=== PATIENT | male | born 1960 | race Caucasian/White ===

== ENCOUNTER 2023-01-24 09:29 | Outpatient (OUT) | payer OTHER, SELFPAY ==
--- NOTE | 2023-01-24 10:00 | XR_ITS ---
The [place] [id number] Patient Name: ISAIAS GONSALEZ MRN: [id number] date: 1960 Sex: M Assigned Patient Location: [facility] Current Patient Location: [facility] Accession/Order Number: [id number] Exam Date: 01/24/2023 10:00 Report Date: 01/24/2023 17:24 At the request of: FARIDEH VASQUEZ Procedure: XR foot RT min 3V PROCEDURE: XR ankle RT min 3V, XR foot RT min 3V HISTORY: RIGHT ANKLE PAIN COMPARISON: None. FINDINGS: BONES:Bone hypertrophy the head of the first metatarsal and mild lateral deviation of the first toe. No fracture, dislocation, or bone lesion. Symmetric appearance of the ankle joint. SOFT TISSUES:No visible soft tissue swelling. EFFUSION:None visible. OTHER: Negative. XR/XR foot RT min 3V IMPRESSION: 1. Mild bunion formation. 2. Unremarkable ankle joint. Electronically authenticated by: YONI CARMICHAEL Date: 01/24/2023 17:24
--- NOTE | 2023-01-24 10:01 | XR_ITS ---
The [place] [id number] Patient Name: ISAIAS GONSALEZ MRN: [id number] date: 1960 Sex: M Assigned Patient Location: [facility] Current Patient Location: [facility] Accession/Order Number: [id number] Exam Date: 01/24/2023 10:00 Report Date: 01/24/2023 17:24 At the request of: FARIDEH VASQUEZ Procedure: XR ankle RT min 3V PROCEDURE: XR ankle RT min 3V, XR foot RT min 3V HISTORY: RIGHT ANKLE PAIN COMPARISON: None. FINDINGS: BONES:Bone hypertrophy the head of the first metatarsal and mild lateral deviation of the first toe. No fracture, dislocation, or bone lesion. Symmetric appearance of the ankle joint. SOFT TISSUES:No visible soft tissue swelling. EFFUSION:None visible. OTHER: Negative. XR/XR ankle RT min 3V IMPRESSION: 1. Mild bunion formation. 2. Unremarkable ankle joint. Electronically authenticated by: YONI CARMICHAEL Date: 01/24/2023 17:24
== END 2023-01-24 09:30 | disposition home or self-care (01) ==
LOC: RAD 09:29
PROVIDERS: Visit Provider Podiatrist Foot & Ankle Surgery
DX: M19.071 Primary osteoarthritis, right ankle and foot (principal)
CPT/HCPCS: 73610; 73630

== ENCOUNTER 2023-04-30 06:58 | Outpatient (OUT) | payer OTHER, SELFPAY ==
--- NOTE | 2023-04-30 07:03 | MR_ITS ---
The [address] [address] Patient Name: ISAIAS GONSALEZ MRN: [id number] date: 1960 Sex: M Assigned Patient Location: MRI Current Patient Location: MRI Accession/Order Number: [id number] Exam Date: 04/30/2023 07:04 Report Date: 04/30/2023 08:16 At the request of: JOLIE SHARMA Procedure: MR head/brain wo/w con EXAM: MR head/brain wo/w con HISTORY: Multiple myeloma. Speech difficulty COMPARISON: None. TECHNIQUE: Multiplanar images of the brain with and without contrast. 20 mL determined FINDINGS: There is no diffusion abnormality. There is mild parenchymal volume loss. There is mild T2 hyperintensity in the periventricular white matter. There is no mass, mass effect, nor hydrocephalus. The vascular flow voids are patent. Postcontrast, there is no abnormal enhancement. The dural sinuses are patent. There are no areas of hemosiderin staining. The orbits, sella, and craniocervical junction are unremarkable. MR/MR head/brain wo/w con IMPRESSION: No MRI evidence for acute ischemia. Mild T2 hyperintensity in the periventricular white matter. Most likely sequela small vessel ischemic change or other demyelinating process. No acute intracranial findings by MRI with without contrast Electronically authenticated by: NICOLAS MCCAIN Date: 04/30/2023 08:16
== END 2023-04-30 06:59 | disposition home or self-care (01) ==
LOC: MRI 06:58
PROVIDERS: Visit Provider Physician Assistant Medical
DX: C90.00 Multiple myeloma not having achieved remission (principal); R47.02 Dysphasia
CPT/HCPCS: 70553; A9575

== ENCOUNTER 2024-01-06 20:08 | Emergency (ER) | payer OTHER, SELFPAY ==
[2024-01-06 20:14] VITALS: BP 129/86; PULSE 110; TEMP 37.3; O2SAT 93; BMI 29.0
--- NOTE | 2024-01-06 21:29 | ED.URI1 ---
HPI - URI/Sore Throat General Chief Complaint: Upper Respiratory Infection Stated Complaint: Cough Time Seen by Provider: 01/06/24 21:24 Source: patient History of Present Illness HPI Narrative: patient presents complaining of cough. States he has been coughing for 4 years. States he believes he had COVID19 because he loss his since of smell. States the smell is slowly starting to return. Has been seen by multiple physicians over the 4 years including his PCP, ENT and pulmonary. States he has been treated with several courses of antibiotics without improvement and cxrays have been neg also. Short of breath while coughing . no fever or chest pain Related Data Home Medications ?Medication ?Instructions ?Recorded ?Confirmed albuterol sulfate 90 mcg/actuation 2 puff inhalation Q4H PRN 01/06/24 01/06/24 aerosol inhaler shortness of breath or wheezing alpha lipoic acid 200 mg capsule 200 mg PO DAILY 01/06/24 01/06/24 aspirin 325 mg tablet 325 mg PO DAILY 01/06/24 01/06/24 atorvastatin 10 mg tablet 10 mg PO DAILY 01/06/24 01/06/24 calcium 500 mg tablet 1,200 mg PO DAILY 01/06/24 01/06/24 cetirizine 10 mg tablet (24Hour 10 mg PO DAILY 01/06/24 01/06/24 Allergy) dorzalox 01/06/24 losartan 50 mg tablet 50 mg PO 01/06/24 multivitamin (Daily Multi-Vitamin 1 tab PO DAILY 01/06/24 01/06/24 tablet) omeprazole 40 mg capsule,delayed 40 mg PO DAILY 01/06/24 01/06/24 release pomalidomide 2 mg capsule 2 mg PO 01/06/24 (Pomalyst) sour taylor extract 1,000 mg 1,200 mg PO 01/06/24 capsule (Tart Taylor Extract) valacyclovir 500 mg tablet 500 mg PO DAILY 01/06/24 01/06/24 vitamin B complex (Balanced B-50 1 tab PO DAILY 01/06/24 01/06/24 tablet) Allergies Allergy/AdvReac Type Severity Reaction Status Date / Time loperamide [From Imodium A-D] Allergy Severe Verified 01/06/24 20:21 Review of Systems ROS Status of ROS 10 or more systems reviewed and unremarkable except as noted in history and below Exam Constitutional Vital Signs, click to edit/add: Last Vital Signs Temp 99.2 F 01/06/24 20:14 Pulse 110 H 01/06/24 20:14 Resp 18 01/06/24 20:14 BP 129/86 01/06/24 20:14 Pulse Ox 93 L 01/06/24 20:14 O2 Del Method Room Air 01/06/24 20:14 Common normals: no apparent distress, average body habitus, oriented x3, no limitations, healthy appearing, alert and well nourished [facility] Common normals: normocephalic and head/scalp atraumatic Eye Common normals: EOMs intact bilaterally and conjunctivae normal Respiratory Common normals: normal respiratory effort, no retractions, no use of accessory muscles and clear to auscultation bilaterally Cardio Rate: tachycardic Extremity Common normals: normal to inspection and full ROM Neuro Common normals: oriented x3, CN's II-XII intact bilaterally, moves all extremities, no focal motor deficits and no sensory deficits noted Psych Appearance: grossly normal Course Vital Signs Vital signs: Vital Signs Temperature 99.2 F 01/06/24 20:14 Pulse Rate 110 H 01/06/24 20:14 Respiratory Rate 18 01/06/24 20:14 Blood Pressure 129/86 01/06/24 20:14 Pulse Oximetry 93 L 01/06/24 20:14 Oxygen Delivery Method Room Air 01/06/24 20:14 Temperature 99.2 F 01/06/24 20:14 Pulse Rate 110 H 01/06/24 20:14 Respiratory Rate 18 01/06/24 20:14 Blood Pressure 129/86 01/06/24 20:14 Pulse Oximetry 93 L 01/06/24 20:14 Oxygen Delivery Method Room Air 01/06/24 20:14 MDM - URI/Sore Throat MDM Narrative Medical decision making narrative: presents with 4 year cough. multiple evaluations unremarkable. same cough as before. exam unremarkable. Patient advised of the plan to try a course of prednisone to see if it helps and have him follow up with his doctor Discharge Plan Discharge Stand Alone Forms: Portal Instructions Chief Complaint: Upper Respiratory Infection Clinical Impression: Chronic cough Patient Disposition: Home, Self-Care Prescriptions / Home Meds: No Action albuterol sulfate 90 mcg/actuation HFA aerosol inhaler 2 puff INHALATION Q4H PRN (Reason: shortness of breath or wheezing) aspirin 325 mg tablet 325 mg PO DAILY atorvastatin 10 mg tablet 10 mg PO DAILY losartan 50 mg tablet 50 mg PO omeprazole 40 mg capsule,delayed release(DR/EC) 40 mg PO DAILY Pomalyst 2 mg capsule 2 mg PO valacyclovir 500 mg tablet 500 mg PO DAILY alpha lipoic acid 200 mg capsule 200 mg PO DAILY Tart Taylor Extract 1,000 mg capsule 1,200 mg PO vitamin B complex [Balanced B-50] Tablet 1 tab PO DAILY Rx Instructions: unsure of dose multivitamin [Daily Multi-Vitamin] Tablet 1 tab PO DAILY calcium 500 mg tablet 1,200 mg PO DAILY cetirizine [24Hour Allergy] 10 mg tablet 10 mg PO DAILY dorzalox Rx Instructions: IVIG every 4 weeks Print Language: Kittitian Instructions: Chronic Cough (ED) Referrals: STU CAO [Primary Care Provider] - 1 week
[2024-01-06 21:47] VITALS: BP 135/70; PULSE 65; O2SAT 95
== END 2024-01-06 21:49 | disposition home or self-care (01) ==
PROVIDERS: Emergency Provider Internal Medicine; PCP Family Medicine
DX: R05.3 Chronic cough (principal)
CPT/HCPCS: 99283

== ENCOUNTER 2025-01-20 09:18 | Outpatient (OUT) | payer OTHER, SELFPAY ==
--- NOTE | 2025-01-20 09:45 | CT_ITS ---
The [address] [address] Patient Name: ISAIAS GONSALEZ MRN: [id number] date: 1960 Sex: M Assigned Patient Location: CT Current Patient Location: CT Accession/Order Number: [id number] Exam Date: 01/20/2025 11:38 Report Date: 01/20/2025 12:53 At the request of: BELKIS HOLLINS DO Procedure: CT angio abdomen pelvis CTA CHEST, ABDOMEN AND PELVIS WITH CONTRAST CLINICAL DATA: Aortic thrombus on outside imaging. COMPARISON: [facility] 12/13/2024 Spiral images were obtained through the chest, abdomen and pelvis following 100 MLO Omnipaque 350. Sagittal and coronal MIP as well as 3-D volume rendered reconstructions of the abdominal aorta and its branches were reviewed. This CT exam was performed using one or more following dose reduction techniques: Automated exposure control, adjustment of the mA and/or kV according to patient size, or use of iterative reconstruction technique. No aortic aneurysm is identified. Mild atherosclerotic plaque at the aortic arch, abdominal aorta and origin of the visceral arteries. There is irregular mural thrombus with possible ulceration the distal aspect of the aortic arch, some of the prior. There is also minor thrombus with potential ulceration along the inferior medial aspect of the descending aorta (axial image 73). This is not obvious on the comparison. There is similar mural thrombus along the posterior left lateral aspect of the aorta at the upper abdomen between the celiac and renal arteries. At the proximal left common iliac artery, there is residual somewhat linear hypodensity that extends into the lumen of the vessel which could be maintaining thrombus. This appeared more occlusive at the origin of the common iliac artery on the comparison. There is no periaortic fluid. The heart is top normal in size. There is a tiny pericardial effusion. No enlarged lymph nodes are seen. There is minimal scarring or atelectasis at the lingula. There is dependent atelectasis at the posterior right upper lobe as well as at the lower lobes bilaterally, greatest at the posterior costophrenic angles where there is also bronchiectasis. No pleural effusion or pneumothorax is seen. A tiny 3 mm lingular nodule is visualized. There is mild thoracolumbar levoscoliotic curvature. There is slight wedge compression deformity of a couple consecutive midthoracic vertebral bodies, likely chronic. There is anterior deflexion of the xiphoid with overlying soft tissue protrusion. No calcified gallstones are visualized. No intrahepatic masses are seen. There is heterogeneous enhancement of the spleen related to timing of the bolus. The pancreas and adrenal glands show no acute findings. There is mild bilateral perinephric fibrofatty stranding. The renal nephrograms are symmetric. No hydronephrosis is noted. There are small mesenteric lymph nodes. No ascites is present. The small bowel loops are normal caliber. Stool is visualized along the colon. There is minor degenerative change at the lumbar spine. Images through the pelvis show no dilated small bowel. No appendiceal inflammation is seen. There is moderate stool at the cecum and at the distal colon. No diverticular disease is noted. The urinary bladder contains a Ch catheter and is poorly distended for evaluation. The prostate is not significantly enlarged. There is soft tissue calcification along the superior lateral aspect of the right hip. There is also subtle asymmetric hyperdensity within the adjacent gluteal muscles. CT/CT angio abdomen pelvis IMPRESSION: NO AORTIC ANEURYSM. AREAS OF MURAL THROMBUS WITH POSSIBLE ULCERATION AT THE POSTERIOR AORTIC ARCH, SIMILAR TO THE COMPARISON AND DISTAL THORACIC AORTA, POSSIBLY NEW. RESIDUAL THROMBUS AT THE PROXIMAL LEFT COMMON ILIAC ARTERY WHERE THERE IS INTERVAL IMPROVEMENT. ATELECTASIS, GREATEST AT THE POSTERIOR COSTOPHRENIC ANGLES WHERE BRONCHIECTASIS IS SEEN. INCIDENTAL SMALL LINGULAR NODULE. NO BOWEL OR URINARY TRACT OBSTRUCTION. MODERATE COLONIC STOOL. Impression dictated by: Palma Lares M.D. 01/20/2025 12:53 PM Dictation Location: [place] [address] Electronically authenticated by: [id number] Y Date: 01/20/2025 12:53
--- NOTE | 2025-01-20 09:45 | CT_ITS ---
The [address] [address] Patient Name: ISAIAS GONSALEZ MRN: [id number] date: 1960 Sex: M Assigned Patient Location: CT Current Patient Location: CT Accession/Order Number: [id number] Exam Date: 01/20/2025 11:38 Report Date: 01/20/2025 12:53 At the request of: BELKIS HOLLINS DO Procedure: CT angio abdomen pelvis CTA CHEST, ABDOMEN AND PELVIS WITH CONTRAST CLINICAL DATA: Aortic thrombus on outside imaging. COMPARISON: [facility] 12/13/2024 Spiral images were obtained through the chest, abdomen and pelvis following 100 MLO Omnipaque 350. Sagittal and coronal MIP as well as 3-D volume rendered reconstructions of the abdominal aorta and its branches were reviewed. This CT exam was performed using one or more following dose reduction techniques: Automated exposure control, adjustment of the mA and/or kV according to patient size, or use of iterative reconstruction technique. No aortic aneurysm is identified. Mild atherosclerotic plaque at the aortic arch, abdominal aorta and origin of the visceral arteries. There is irregular mural thrombus with possible ulceration the distal aspect of the aortic arch, some of the prior. There is also minor thrombus with potential ulceration along the inferior medial aspect of the descending aorta (axial image 73). This is not obvious on the comparison. There is similar mural thrombus along the posterior left lateral aspect of the aorta at the upper abdomen between the celiac and renal arteries. At the proximal left common iliac artery, there is residual somewhat linear hypodensity that extends into the lumen of the vessel which could be maintaining thrombus. This appeared more occlusive at the origin of the common iliac artery on the comparison. There is no periaortic fluid. The heart is top normal in size. There is a tiny pericardial effusion. No enlarged lymph nodes are seen. There is minimal scarring or atelectasis at the lingula. There is dependent atelectasis at the posterior right upper lobe as well as at the lower lobes bilaterally, greatest at the posterior costophrenic angles where there is also bronchiectasis. No pleural effusion or pneumothorax is seen. A tiny 3 mm lingular nodule is visualized. There is mild thoracolumbar levoscoliotic curvature. There is slight wedge compression deformity of a couple consecutive midthoracic vertebral bodies, likely chronic. There is anterior deflexion of the xiphoid with overlying soft tissue protrusion. No calcified gallstones are visualized. No intrahepatic masses are seen. There is heterogeneous enhancement of the spleen related to timing of the bolus. The pancreas and adrenal glands show no acute findings. There is mild bilateral perinephric fibrofatty stranding. The renal nephrograms are symmetric. No hydronephrosis is noted. There are small mesenteric lymph nodes. No ascites is present. The small bowel loops are normal caliber. Stool is visualized along the colon. There is minor degenerative change at the lumbar spine. Images through the pelvis show no dilated small bowel. No appendiceal inflammation is seen. There is moderate stool at the cecum and at the distal colon. No diverticular disease is noted. The urinary bladder contains a Ch catheter and is poorly distended for evaluation. The prostate is not significantly enlarged. There is soft tissue calcification along the superior lateral aspect of the right hip. There is also subtle asymmetric hyperdensity within the adjacent gluteal muscles. CT/CT angio chest IMPRESSION: NO AORTIC ANEURYSM. AREAS OF MURAL THROMBUS WITH POSSIBLE ULCERATION AT THE POSTERIOR AORTIC ARCH, SIMILAR TO THE COMPARISON AND DISTAL THORACIC AORTA, POSSIBLY NEW. RESIDUAL THROMBUS AT THE PROXIMAL LEFT COMMON ILIAC ARTERY WHERE THERE IS INTERVAL IMPROVEMENT. ATELECTASIS, GREATEST AT THE POSTERIOR COSTOPHRENIC ANGLES WHERE BRONCHIECTASIS IS SEEN. INCIDENTAL SMALL LINGULAR NODULE. NO BOWEL OR URINARY TRACT OBSTRUCTION. MODERATE COLONIC STOOL. Impression dictated by: Palma Lares M.D. 01/20/2025 12:53 PM Dictation Location: [place] [address] Electronically authenticated by: [id number] Y Date: 01/20/2025 12:53
[2025-01-20 09:53] LABS: Estimated GFR (African America >60 (>=60 mL/min/1.73m^2); Estimated GFR (Non-African Ame >60 (>=60 mL/min/1.73m^2)
== END 2025-01-20 09:19 | disposition home or self-care (01) ==
LOC: CT 09:20
PROVIDERS: Pathology Anatomic Pathology & Clinical Pathology; PCP Family Medicine; Visit Provider Surgery Vascular Surgery
DX: I74.10 Embolism and thrombosis of unspecified parts of aorta (principal)
CPT/HCPCS: 36415; 71275; 74174; 82565; Q9967